=== PATIENT | female | born 1950 | race Caucasian/White ===

== ENCOUNTER → 2016-08-12 | Day surgery (SDC) | payer MEDICARE, MEDICAID ==
[~2016-08-12] MED LIST: Lactated Ringers 1,000 ML IV SCH; Lidocaine 4% Top Soln 5 ML LTA Syringe ONE; Lidocaine 4% Top Soln 5 ML LTA Syringe TOP ONE; Propofol 200 MG/20 ML SDV IV ONE
[2016-08-12 12:41] VITALS: BP 130/72
--- NOTE | 2016-08-12 13:02 | OR ---
DATE OF OPERATION: 08/12/2016 PREOPERATIVE DIAGNOSIS: CHRONIC GASTROESOPHAGEAL REFLUX DISEASE. POSTOPERATIVE DIAGNOSIS: CHRONIC GASTROESOPHAGEAL REFLUX DISEASE. SURGEON: Pavel Serrano MD PROCEDURE: ESOPHAGOGASTRODUODENOSCOPY WITH ANTRAL BIOPSY X1. ANESTHESIA: PROVER due to chronic and severe reflux along with sleep apnea. COMPLICATIONS: None. SPECIMEN: Antral biopsy x1. FINDINGS: 1. Full-length EGD. 2. Moderate sized hiatal hernia with reflux. 3. No distal esophagitis, stricturing, ulceration, or Yen changes. 4. Mild antral gastritis. RECOMMENDATIONS: Consideration for lap Mireya, as the patient is failing outpatient management. INDICATIONS: The patient was in for a physical. She has been having some chronic reflux issues. Dr. Venegas recommended an EGD. DESCRIPTION OF PROCEDURE: The patient was prepped and draped, placed in the left lateral decubitus position. A lubricated Olympus gastroscope was inserted and easily intubated into the esophagus. Esophageal lining was benign in its entire course. The Z-line was crisp and sharp at 37 cm. There was a moderate- sized hiatal hernia present without any distal esophagitis, stricturing, ulceration, or Yen's changes seen. The scope was advanced into the stomach through the pylorus into the third portion of the duodenum. This and the duodenal bulb were completely benign. The scope was brought back into the stomach and retroflexed. The upper fundus and cardia completely unremarkable. Hernia seen from below easily. The rest of the gastric lining was evaluated thoroughly. The patient had some very mild antral gastritis without any erosion or ulceration. A biopsy was taken. We were intending on a MARIE, but the patient lost her IV, started waking up, and it was very difficult to safely keep calm, and we elected to terminate the procedure at that point. The scope was removed after air was suctioned without any complication. The patient is stable in the recovery room. KATHY/RONN /[id number]
== END ==
LOC: CC.SDS 10:53
PROVIDERS: ATTEND Family Medicine
DX: K29.50 Unspecified chronic gastritis without bleeding (principal); K44.9 Diaphragmatic hernia without obstruction or gangrene; F41.9 Anxiety disorder, unspecified; F32.9 Major depressive disorder, single episode, unspecified; E78.00 Pure hypercholesterolemia, unspecified; I10 Essential (primary) hypertension; E03.9 Hypothyroidism, unspecified; G47.30 Sleep apnea, unspecified; E55.9 Vitamin D deficiency, unspecified; Z79.899 Other long term (current) drug therapy; Z90.710 Acquired absence of both cervix and uterus
CPT/HCPCS: 43239; A9270; J2704; J7120; 00740; 88305; 88342

== ENCOUNTER → 2017-10-27 | Day surgery (SDC) | payer MEDICARE, OTHER ==
[~2017-10-27] MED LIST changes: +Meperidine PF 25 MG/ML Syringe IV ONE; +Meperidine PF 25 MG/ML Syringe ONE; +Meperidine PF 50 MG/ML Syringe IV ONE; +Meperidine PF 50 MG/ML Syringe ONE; +Midazolam 1 MG/ML 2 ML SDV IV ONE; +Midazolam 1 MG/ML 2 ML SDV ONE; -Propofol 200 MG/20 ML SDV IV ONE
[2017-10-27 13:26] VITALS: BP 106/57
--- NOTE | 2017-11-01 10:57 | OR ---
DATE OF OPERATION: 10/27/2017 PREOPERATIVE DIAGNOSIS: 1. EPIGASTRIC PAIN. 2. ALTERED BOWEL HABITS. POSTOPERATIVE DIAGNOSIS: 1. EPIGASTRIC PAIN. 2. ALTERED BOWEL HABITS. SURGEON: Pavel Serrano MD PROCEDURE: 1. EGD WITH BIOPSIES X4, MARIE. 2. FULL-LENGTH COLONOSCOPY. ANESTHESIA: Conscious sedation. COMPLICATIONS: None. SPECIMEN: 1. Antral biopsy x2. 2. EG junction biopsy x2. 3. Antral MARIE. FINDINGS: 1. Full-length EGD. 2. Antral gastritis with multiple erosions/ulcerations. 3. Hiatal hernia with GERD. 4. Upper cardia/EG junction thickening. 5. Full-length colonoscopy with extremely poor bowel prep. 6. Mild diverticulosis. RECOMMENDATIONS: Medical follow up with Dr. Venegas. INDICATIONS: The patient was in for a physical and has been having some chronic dyspepsia in the epigastric area. She has also had some altered bowel habits. Dr. Venegas recommended upper and lower endoscopy. DESCRIPTION OF PROCEDURE: The patient was prepped and draped in usual fashion and placed in left lateral decubitus position. A lubricated Olympus gastroscope was inserted over a bit, advanced to the cricopharyngeus area, and with patient swallow, intubated in the esophagus. Esophageal lining was benign in its entire course. The Z-line was crisp and sharp at 37 cm. There was a mild hiatal hernia present with spontaneous GERD. No distal esophagitis, stricturing, ulceration, or Yen's changes were seen. At the EG junction in the upper cardia portion of the stomach, there was thickening circumferential at or near the EG junction. Two biopsies of the most affected area were obtained. No amaris ulcerations were seen. The scope was intubated into the stomach through the pylorus into the second portion of the duodenum. The second portion of duodenum and duodenal bulb were benign. The scope was brought back into the stomach, retroflexed. Upper fundus and cardia were unremarkable other than the hernia visualized from below. Upon straightening, the rest of the fundus was for the most part benign. The antrum had diffuse active gastritis with multiple erosions/multiple small ulcerations. Two biopsies were taken along with a MARIE test. Air was then suctioned and scope removed without complication. A lubricated Olympus colonoscope was inserted and ultimately advanced to the cecum. The patient had a very poor bowel prep with a lot of stool throughout the entire length of the colon. Some areas could be suctioned, most could not. We were able to get into the cecum, but it was very difficult to irrigate this out, as there was stool present. We did get a poor visualization of most of the right colon. The transverse and descending showed no gross abnormalities. There were some scattered diverticula through the sigmoid area. I could find no other signs of polyps, mass, ulceration, or bleeding sites. No vascular abnormalities or signs of colitis. The rectal vault appeared benign. Retroflexion showed no perianal lesions. Air was suctioned. Scope removed without complication. KATHY/RONN /[id number]
== END ==
LOC: CC.SDS 10:21
PROVIDERS: ATTEND Family Medicine
DX: R10.13 Epigastric pain (principal); R19.4 Change in bowel habit; K29.50 Unspecified chronic gastritis without bleeding; K20.9 Esophagitis, unspecified; K22.70 Barrett's esophagus without dysplasia; K57.30 Diverticulosis of large intestine without perforation or abscess without bleeding; K44.9 Diaphragmatic hernia without obstruction or gangrene; K21.9 Gastro-esophageal reflux disease without esophagitis; E03.9 Hypothyroidism, unspecified; E04.1 Nontoxic single thyroid nodule; E55.9 Vitamin D deficiency, unspecified; E78.00 Pure hypercholesterolemia, unspecified; G47.30 Sleep apnea, unspecified; I10 Essential (primary) hypertension; M81.8 Other osteoporosis without current pathological fracture; M19.90 Unspecified osteoarthritis, unspecified site; F41.9 Anxiety disorder, unspecified; F32.9 Major depressive disorder, single episode, unspecified; Z79.82 Long term (current) use of aspirin; Z79.899 Other long term (current) drug therapy
CPT/HCPCS: 87081; 88305; 88342; A9270-GY; J2175; J2250